=== PATIENT | female | born 1985 | race Caucasian/White ===

== ENCOUNTER 2016-10-24 13:00 | Emergency (ER) | payer SELFPAY ==
[~2016-10-24] VITALS: Ht 165.1 cm; Wt 66.0 kg
[~2016-10-24 13:00] MED LIST: PENI500T PO; PREN0.01 PO; TYLE3 PO; VICO7.5T PO; Z.0.NO CURRENT MEDS
[2016-10-24 13:03] VITALS: BP 126/77; PULSE 98; RESP 16; TEMP 98.2; O2SAT 98
[2016-10-24] MEDS ORDERED: SODIUM CHLOR 0.9% 1000 ML INJ 1,000 ML IV ONE (13:30)
--- NOTE | 2016-10-24 13:35 | PD ---
HPI . Lower abdominal pain Chief Complaint: Skin Problem Time Seen by Provider: 13:26 Travel History International Travel<30 days: No Contact w/Intl Traveler<30days: No Traveled to known affect area: No History of Present Illness HPI Patient is status post on 10/04. She comes in complaining with pain at the surgical site. She is also complaining with vaginal bleeding. She states that she gets dizzy when she stands up. No fever. No vomiting or diarrhea. No urinary symptoms. PFSH Past Medical History Medical History: Denies Significant Hx Diminished Hearing: No Tetanus Vaccination: Unknown Influenza Vaccination: No ?: Not : 2 Para: 2 Past Surgical History Section: Yes Social History Alcohol Use: No Tobacco Use: No Substance Use: No Allergies-Medications (Allergen,Severity, Reaction): Coded Allergies: No Known Allergies (Verified , 10/24/16) Reported Meds & Prescriptions Reported Meds & Active Scripts Active No Active Prescriptions or Reported Medications Review of Systems Except as stated in HPI: all other systems reviewed are Neg General / Constitutional: No: Fever, Chills Gastrointestinal: No: Nausea, Vomiting Genitourinary: Positive: Vaginal Bleeding Skin: Positive Other (surgical willing) Neurologic: Positive: Weakness, Dizziness Physical Exam Narrative GENERAL: This is a healthy-appearing young female who is in no acute distress SKIN: Warm and dry. She is pink HEAD: Atraumatic. Normocephalic. EYES: Pupils equal and round. Conjunctivae are pink. ENT: No nasal bleeding or discharge. Mucous membranes pink and moist. NECK: Trachea midline. CARDIOVASCULAR: Regular rate and rhythm. RESPIRATORY: No accessory muscle use. GASTROINTESTINAL: Abdomen soft, non-tender, nondistended. She has a healing suprapubic surgical wound with no redness or warmth. There is no drainage. MUSCULOSKELETAL: No obvious deformities. No edema. NEUROLOGICAL: Awake and alert. No obvious cranial nerve deficits. Motor grossly within normal limits. Normal speech. PSYCHIATRIC: Appropriate mood and affect; insight and judgment normal. Data Data Last Documented VS Vital Signs Date Time Temp Pulse Resp B/P Pulse Ox O2 Delivery O2 Flow Rate FiO2 10/24/16 13:25 16 10/24/16 13:03 98.2 98 126/77 98 Room Air Orders Complete Blood Count With Diff (10/24/16 13:29) Sodium Chlor 0.9% 1000 Ml Inj (Ns 1000 M (10/24/16 13:30) Orthostatic Vital Signs (10/24/16 13:29) Labs Laboratory Tests Test 10/24/16 13:30 White Blood Count 5.9 TH/MM3 Red Blood Count 3.67 MIL/MM3 Hemoglobin 10.8 GM/DL Hematocrit 32.6 % Mean Corpuscular Volume 88.9 FL Mean Corpuscular Hemoglobin 29.6 PG Mean Corpuscular Hemoglobin 33.3 % Concent Red Cell Distribution Width 12.9 % Platelet Count 506 TH/MM3 Mean Platelet Volume 8.0 FL Neutrophils (%) (Auto) 68.7 % Lymphocytes (%) (Auto) 20.6 % Monocytes (%) (Auto) 7.3 % Eosinophils (%) (Auto) 2.6 % Basophils (%) (Auto) 0.8 % Neutrophils # (Auto) 4.0 TH/MM3 Lymphocytes # (Auto) 1.2 TH/MM3 Monocytes # (Auto) 0.4 TH/MM3 Eosinophils # (Auto) 0.2 TH/MM3 Basophils # (Auto) 0.0 TH/MM3 CBC Comment DIFF FINAL Differential Comment MDM Medical Decision Making Medical Screen Exam Complete: Yes Emergency Medical Condition: Yes Differential Diagnosis Differential diagnosis of weakness includes but is not limited to infection, CVA , electrolyte disturbance, renal failure, hypoglycemia, UTI, ACS Narrative Course This is a patient who is status post a about 3 weeks ago. She presents complaining with wound pain and vaginal bleeding. She also states that she gets dizzy when she stands up. I will check a CBC and orthostatic vital signs. Her H&H is 10.8 and 32.6. This is stable for her. Diagnosis Primary Impression: Postoperative pain Additional Impression: Dizziness Additional Instructions: Increase your fluid consumption. Scripts No Active Prescriptions or Reported Meds Disposition: 01 DISCHARGE HOME Condition: Stable Alivia Morris MD Oct 24, 2016 13:35
[2016-10-24 14:18] LABS: BASOPHIL % 0.8 % (0.0-2.0); EOSINOPHIL # 0.2 TH/MM3 (0-0.4); EOSINOPHIL % 2.6 % (0.0-4.0); HEMATOCRIT 32.6 % (35.0-46.0); HEMO FLAGS DIFF FINAL; LYMPH % 20.6 % (9.0-44.0); LYMPHOCYTE # 1.2 TH/MM3 (1.0-4.8); MEAN CELL VOLUME 88.9 FL (80.0-100.0); MEAN CORPUSCULAR HEMOGLOBIN 29.6 PG (27.0-34.0); MEAN CORPUSCULAR HGB CONC 33.3 % (32.0-36.0); MONO % 7.3 % (0.0-8.0); NEUT % 68.7 % (16.0-70.0); PLATELET COUNT 506 TH/MM3 (150-450); RED BLOOD COUNT 3.67 MIL/MM3 (4.00-5.30); RED CELL DISTRIBUTION WIDTH 12.9 % (11.6-17.2); WHITE BLOOD COUNT 5.9 TH/MM3 (4.0-11.0)
[2016-10-24 14:29] VITALS: BP_SYST 98; BP_SYST 99; BP_DIAS 58; BP_DIAS 59; RESP 18
[2016-10-24] MEDS ORDERED: BACT800T5 PO (14:44)
== END 2016-10-24 14:50 | disposition home or self-care (01) ==
LOC: NEPA 13:00
DX: O90.89 Other complications of the puerperium, not elsewhere classified (principal); G89.18 Other acute postprocedural pain; R42 Dizziness and giddiness
CPT/HCPCS: 85025; 96360; 99284; J7030